=== PATIENT | male | born 1935 | race Caucasian/White ===

== ENCOUNTER → 2018-12-23 13:32 | Outpatient (CLI) | payer MEDICARE, SELFPAY ==
[2018-12-23 09:13] VITALS: BMI 25.3
--- NOTE | 2018-12-23 13:36 | RAD_ITS ---
STUDY: X-RAY - CERVICAL SPINE REASON FOR EXAM: Male, 83 years old. Neck pain TECHNIQUE: 3 view(s) of the cervical spine were obtained. COMPARISON: None FINDINGS: There is a normal lordotic curvature of the cervical spine with no demonstration of any acute fractures or dislocations. There is some narrowing at C3-C4 and C4-C5 disc spaces. There are also degenerative changes involving almost all of the facet joints. The prevertebral soft tissues are normal RAD/Cerv Spine 2 or 3 Views IMPRESSION: No fracture. Degenerative changes involving almost all of the facet joints. Individualized chondrosis at C3-C4 and C4-C5. Electronically Signed: Keaton Epstein MD at 2:47 EST Tel , Service support ,
--- NOTE | 2018-12-23 13:36 | RAD_ITS ---
STUDY: X-RAY - LUMBAR SPINE REASON FOR EXAM: Male, 83 years old. Back pain TECHNIQUE: 3 view(s) of the lumbar spine were obtained. COMPARISON: None FINDINGS: There is a 22 degrees thoracolumbar scoliosis with convexity to the right with the apex at around L1. There are also multilevel degenerative changes of the lumbosacral spine demonstrated by narrowing of almost all the disc spaces with spurs from the vertebral body endplates at these levels. There are no acute fractures. RAD/Lumbar Spine 2 or 3 Views IMPRESSION: A 22 degree thoracolumbar scoliosis with convexity to the right and multilevel degenerative changes of the lumbosacral spine. No fracture Electronically Signed: Keaton Epstein MD at 5:15 EST Tel , Service support ,
== END ==
PROVIDERS: Family Provider Nurse Practitioner Primary Care; PCP Nurse Practitioner Primary Care; Referring Provider Anesthesiology Pain Medicine; Visit Provider Anesthesiology Pain Medicine
DX: M54.2 Cervicalgia (principal); M54.9 Dorsalgia, unspecified
CPT/HCPCS: 72040; 72100; 80053; 82784; 84165; 85025; 86334; 96401; J9041

== ENCOUNTER → 2019-02-04 15:22 | Outpatient (CLI) | payer MEDICARE, SELFPAY ==
[2019-01-27 09:39] VITALS: BMI 24.8
[2019-02-03 09:27] VITALS: BMI 25.3
--- NOTE | 2019-02-04 15:29 | MRI_ITS ---
STUDY: MRI LUMBAR SPINE WITHOUT CONTRAST REASON FOR EXAM: Male, 83 years old. Low backache TECHNIQUE: Standardized fat and water weighted pulse sequences were obtained in the sagittal and axial planes. COMPARISON: None FINDINGS: T12-L1: Normal endplates. Normal disc height, hydration and morphology. Normal bilateral facet joints. Normal central canal and bilateral lateral recesses. Normal bilateral intervertebral neural foramina. Normal lumbar lordosis. There is dextroscoliosis of the upper lumbar spine and levoscoliosis of the lower lumbar spine. Normal conus medullaris that terminates at the T12-L1 level L1-2: There is moderate intervertebral disc space narrowing, mild annular disc bulge and bilateral facet arthrosis, mild ligamentum flavum hypertrophy. No central canal narrowing. Mild bilateral foraminal narrowing.. L2-3: There is grade 1 retrolisthesis of L2 on L3. There is marked intervertebral disc space narrowing and disc desiccation. There is posterior disc osteophyte complex, bilateral facet arthrosis. Mild central canal narrowing. Mild left foraminal narrowing. L3-4: There is grade 2 retrolisthesis of L3 on L4. There is right-sided subluxation of L3 on L4. There is mild to moderate annular disc bulge and bilateral facet arthrosis. Mild central canal narrowing. Mild right and moderate left foraminal narrowing. L4-5: There is moderate intervertebral disc space narrowing. There is annular disc bulge and small annular tear. Bilateral facet arthrosis. No central canal narrowing. Marked right and mild left foraminal narrowing. L5-S1: There is moderate to marked intervertebral disc space narrowing, annular disc bulge, bilateral facet arthrosis. No central canal narrowing. Moderate right and mild to moderate left foraminal narrowing. Normal visualized sacral ala. Normal visualized paraspinous soft tissue structures. There is a right renal cyst. MRI/Spine Lumbar (Routine) IMPRESSION: Multilevel degenerative disc disease is most prominent at L3-L4, L4-L5 and L5-S1 as described above. Lumbar scoliosis. Electronically Signed: Kailey Dillard, at 13:44 EDT Tel , Service support ,
--- NOTE | 2019-02-04 15:29 | MRI_ITS ---
STUDY: MRI CERVICAL SPINE WITHOUT CONTRAST REASON FOR EXAM: Male, 83 years old. Neck and left arm pain x2 years. TECHNIQUE: Standardized fat and water weighted pulse sequences were obtained in the sagittal and axial planes. COMPARISON: None FINDINGS: Normal foramen magnum and brainstem-cervical cord junction. Normal craniovertebral junction. Normal anterior atlantoaxial articulation. Normal odontoid process. Normal cervical lordosis. Normal vertebral bodies and posterior osseous elements. C2-3: Normal endplates. Normal disc height, signal and morphology. Normal central canal and intervertebral neural foramina. C3-4: Normal endplates. Mild disc space height narrowing. Normal central canal and bilateral intervertebral neural foramina. C4-5: Normal endplates. Normal disc height and morphology. Normal central canal and bilateral intervertebral foramina. C5-6: Normal endplates. Normal disc height and morphology. Mild degenerative anterolisthesis of C5 on C6. Normal central canal and bilateral intervertebral neural foramina. C6-7: Normal endplates. Minimal disc space height narrowing. Small posterior bulging disc. Normal central canal and bilateral intervertebral neural foramina. C7-T1: Normal endplates. Normal disc height and morphology. Normal central canal and bilateral intervertebral neural foramina. T1-T2: (Sagittal only). Normal endplates. Normal disc height and morphology. No ventral extradural defect. Normal central canal and bilateral intervertebral neural foramina. T2-T3, T3-T4 and T4-T5: (Sagittal only). Normal endplates. Normal disc height and morphology. No ventral extradural defect. Normal central canal and bilateral intervertebral neural foramina. Normal cervical cord. Normal visualized soft tissue structures. MRI/Spine Cervical (Routine) IMPRESSION: 1. No MRI evidence of cervical extruded disc fragment or spinal stenosis. 2. Minimal degenerative anterolisthesis of C5 on C6. 3. Small C6-7 posterior bulging disc. Electronically Signed: Mane Stokes MD at 14:40 EDT , Service support ,
== END ==
PROVIDERS: Family Provider Nurse Practitioner Primary Care; PCP Nurse Practitioner Primary Care; Referring Provider Anesthesiology Pain Medicine; Visit Provider Anesthesiology Pain Medicine
DX: M54.2 Cervicalgia (principal); M79.602 Pain in left arm
CPT/HCPCS: 72141; 72148

== ENCOUNTER 2019-04-21 10:41 | Outpatient (RCR) | payer MEDICARE, SELFPAY ==
[2019-04-14 09:15] VITALS: BMI 23.8
== END 2019-04-23 23:59 ==
LOC: NS 10:41
PROVIDERS: Family Provider Nurse Practitioner Primary Care; PCP Nurse Practitioner Primary Care; Visit Provider Internal Medicine Hematology & Oncology
DX: E11.9 Type 2 diabetes mellitus without complications (principal); C90.00 Multiple myeloma not having achieved remission; D51.9 Vitamin B12 deficiency anemia, unspecified
CPT/HCPCS: 36415; 85025; 97802; J9041

== ENCOUNTER 2019-05-10 14:30 | Outpatient (RCR) | payer MEDICARE, SELFPAY ==
[2019-04-21 10:22] VITALS: BMI 23.8
[2019-04-28 09:23] VITALS: BMI 23.8
== END 2019-05-23 23:59 ==
LOC: DC 14:30
PROVIDERS: Family Provider Nurse Practitioner Primary Care; PCP Nurse Practitioner Primary Care; Visit Provider Internal Medicine Hematology & Oncology
DX: E11.9 Type 2 diabetes mellitus without complications (principal); C90.00 Multiple myeloma not having achieved remission; D51.9 Vitamin B12 deficiency anemia, unspecified; Z71.3 Dietary counseling and surveillance
CPT/HCPCS: 97803; G0108

== ENCOUNTER → 2019-05-13 10:21 | Outpatient (CLI) | payer MEDICARE, SELFPAY ==
[2019-05-12 09:16] VITALS: BMI 24.4
--- NOTE | 2019-05-13 10:30 | RAD_ITS ---
HISTORY: PAIN IN LEFT LOWER BACK FOR A LONG TIME GETTING WORSE. HX OF BACK SURGERY TO CLEAN IT OUT PER PATIENT ABOUT 5 YRS AGO. NO KNOWN RECENT INJURY. TECHNIQUE: Lumbar spine 3 views Number of images including paperwork: 3 COMPARISON: 12/23/2018 FINDINGS: VERTEBRAE: No acute fracture. Mineralization appears decreased. VERTEBRAL ALIGNMENT: No traumatic subluxation. DISKS AND JOINTS: Severe multilevel discogenic and facet degenerative changes with lumbar scoliosis, grossly similar to previous. SOFT TISSUES: Unremarkable paraspinous soft tissues. RAD/Lumbar Spine 2 or 3 Views IMPRESSION: 1. No acute osseous abnormality. 2. Degenerative changes. at 2670 Reported and signed by: Beth Fernandez MD Electronically Signed: Beth Fernandez MD at 22:48 EDT Tel , Service support ,
== END ==
PROVIDERS: Family Provider Nurse Practitioner Primary Care; PCP Nurse Practitioner Primary Care; Referring Provider Anesthesiology Pain Medicine; Visit Provider Anesthesiology Pain Medicine
DX: M54.9 Dorsalgia, unspecified (principal)
CPT/HCPCS: 72100

== ENCOUNTER → 2019-05-24 16:19 | Outpatient (CLI) | payer MEDICARE, SELFPAY ==
[2019-05-12 09:16] VITALS: BMI 24.4
--- NOTE | 2019-05-24 16:29 | MRI_ITS ---
STUDY: MRI LUMBAR SPINE WITHOUT CONTRAST REASON FOR EXAM: Male, 83 years old. Back and left leg pain TECHNIQUE: Standardized fat and water weighted pulse sequences were obtained in the sagittal and axial planes. COMPARISON: February 04, 2019 FINDINGS: T12-L1: Normal endplates. Normal disc height, hydration and morphology. Normal bilateral facet joints. Normal central canal and bilateral lateral recesses. Normal bilateral intervertebral neural foramina. Normal lumbar lordosis. There is dextroscoliosis of the upper lumbar spine and compensatory levoscoliosis of the lower spine. Normal conus medullaris that terminates at T12-L1 L1-2: Endplate spurring.. Narrowed disc space with desiccation of the disc and mild annular bulge.. Mild facet arthropathy and thickening of ligamenta flava. Normal central canal and bilateral recesses. Mild bilateral neuroforaminal stenosis L2-3: Grade 1 retrolisthesis Narrowed disc space and endplate spurring. Minimal bulging disc osteophyte complex. Mild facet arthrosis. Mild narrowing of the central canal. Normal bilateral neuroforamina. Mild left neuroforaminal stenosis L3-4: Status post bilateral laminotomy. Grade 1/2 retrolisthesis. Normal disc space height. There is desiccation of the disc and mild bulging disc osteophyte complex.. Bilateral facet arthropathy. Mild central canal narrowing. Moderate bilateral neuroforaminal stenosis. L4-5: Status post bilateral laminotomy normal disc height. Desiccation of the disc and minor annular bulge. Bilateral facet arthropathy and thickening of ligamenta flava greater on the right. Normal central canal and bilateral recesses. Moderate left neuroforaminal stenosis and more severe narrowing on the right L5-S1: Status post bilateral laminotomy. Narrowed disc space and endplate spurring. Desiccation of the disc and mild annular bulge with broad-based left paracentral/posterolateral disc extrusion with inferior posterior migration of disc fragment. Bilateral facet arthropathy and mild thickening of ligamenta flava Normal central canal. Moderate left lateral recess and subarticular stenosis.. Moderate bilateral neural foraminal encroachment Normal visualized sacral ala. Large right renal cyst noted Normal visualized paraspinous soft tissue structures. Findings are similar to that seen on previous exam. MRI/Spine Lumbar (Routine) IMPRESSION: Scoliosis and degenerative changes. Multilevel spinal stenosis secondary to disc disease and bony hypertrophy most severe on the left at L5-S1 and on the right at L4-5 Electronically Signed: Isaías Fernandez MD at 19:24 EDT , Service support ,
== END ==
PROVIDERS: Family Provider Nurse Practitioner Primary Care; PCP Nurse Practitioner Primary Care; Referring Provider Anesthesiology Pain Medicine; Visit Provider Anesthesiology Pain Medicine
DX: M54.9 Dorsalgia, unspecified (principal); M79.605 Pain in left leg
CPT/HCPCS: 72148

== ENCOUNTER 2019-08-26 15:59 | Outpatient (RCR) | payer MEDICARE, SELFPAY ==
[2019-05-12 09:16] VITALS: BMI 24.4
[2019-08-18 09:56] VITALS: BMI 24.2
== END 2019-09-23 23:59 ==
LOC: DC 15:59
PROVIDERS: Family Provider Nurse Practitioner Primary Care; PCP Nurse Practitioner Primary Care; Visit Provider Internal Medicine Hematology & Oncology
DX: Z71.3 Dietary counseling and surveillance (principal); E11.9 Type 2 diabetes mellitus without complications; C90.00 Multiple myeloma not having achieved remission; D51.9 Vitamin B12 deficiency anemia, unspecified
CPT/HCPCS: G0109

== ENCOUNTER 2019-09-30 13:42 | Outpatient (RCR) | payer MEDICARE, SELFPAY ==
[2019-09-15 09:13] VITALS: BMI 23.8
[2019-09-29 09:30] VITALS: BMI 24.4
== END 2019-10-23 23:59 ==
LOC: DC 13:42
PROVIDERS: Family Provider Nurse Practitioner Primary Care; PCP Nurse Practitioner Primary Care; Visit Provider Internal Medicine Hematology & Oncology
DX: Z71.3 Dietary counseling and surveillance (principal); E11.9 Type 2 diabetes mellitus without complications; C90.00 Multiple myeloma not having achieved remission; D51.9 Vitamin B12 deficiency anemia, unspecified
CPT/HCPCS: G0109

== ENCOUNTER 2019-10-28 16:56 | Outpatient (RCR) | payer MEDICARE, SELFPAY ==
[2019-10-13 09:24] VITALS: BMI 23.5
[2019-10-27 09:02] VITALS: BMI 23.7
== END 2019-11-23 23:59 ==
LOC: DC 16:56
PROVIDERS: Family Provider Nurse Practitioner Primary Care; PCP Nurse Practitioner Primary Care; Visit Provider Internal Medicine Hematology & Oncology
DX: Z71.3 Dietary counseling and surveillance (principal); E11.9 Type 2 diabetes mellitus without complications; C90.00 Multiple myeloma not having achieved remission; D51.9 Vitamin B12 deficiency anemia, unspecified
CPT/HCPCS: G0109

== ENCOUNTER → 2020-01-10 08:45 | Outpatient (CLI) | payer MEDICARE, SELFPAY ==
[2020-01-05 09:16] VITALS: BMI 23.8
--- NOTE | 2020-01-10 08:48 | RAD_ITS ---
HISTORY: increasing anterior lower leg pain, hx myeloma ADDITIONAL HISTORY: None provided. TECHNIQUE: Left tibia fibula 2 views Number of images including paperwork: 2 COMPARISON: None FINDINGS: BONES: No acute fracture. Partially visualized plate and screw fixation of the left distal femur. JOINTS: No subluxation. Left knee prosthesis. SOFT TISSUES: No distinct foreign body. Vascular calcifications. Small areas of soft tissue calcification also noted. RAD/Tibia & Fibula 2 Views IMPRESSION: No acute osseous abnormality. Post operative changes. at 0027 Reported and signed by: Beth Fernandez MD Electronically Signed: Beth Fernandez MD at 0:27 EST Tel , Service support ,
== END ==
PROVIDERS: PCP Nurse Practitioner Primary Care; Referring Provider Internal Medicine Hematology & Oncology; Visit Provider Internal Medicine Hematology & Oncology
DX: C90.00 Multiple myeloma not having achieved remission (principal); R52 Pain, unspecified
CPT/HCPCS: 73590

== ENCOUNTER → 2021-10-26 07:07 | Outpatient (CLI) | payer MEDICARE, SELFPAY ==
--- NOTE | 2021-10-26 07:45 | MRI_ITS ---
History: NECK PAIN, H/A Technique: T1 and T2 MR imaging of the cervical spine performed without contrast enhancement in axial and sagittal planes. Comparison: February 04, 2019 Findings: Mild anterior listhesis of C5 on C6. Alignment of the cervical vertebral bodies is otherwise normal. No bone marrow edema. Cervical cord is normal. Visualized soft tissues of the neck are normal. C2-3: No disc protrusion. Normal caliber spinal canal and neural foramina. C3-4: Disc space narrowing. No disc protrusion. Normal caliber spinal canal and neural foramina. C4-5: Disc space narrowing. No disc protrusion. Normal caliber spinal canal and neural foramina. C5-6: Mild disc space narrowing. No disc protrusion. Normal caliber spinal canal and neural foramina. C6-7: No disc protrusion. Posterior ligamentous redundancy without significant impingement on the spinal canal. Intact neural foramina. C7-T1: No disc protrusion. Normal caliber spinal canal and neural foramina. MRI/Spine Cervical (Routine) IMPRESSION: Multilevel disc space narrowing. No disc herniation. No significant spinal or neuroforaminal stenosis. Normal cervical cord. at 0955 Reported and signed by: Erich Thakkar MD Electronically Signed: Erich Thakkar MD at 9:53 EST Tel , Service support ,
== END ==
PROVIDERS: PCP Nurse Practitioner Primary Care; Referring Provider Anesthesiology Pain Medicine; Visit Provider Anesthesiology Pain Medicine
DX: M54.12 Radiculopathy, cervical region (principal); M50.20 Other cervical disc displacement, unspecified cervical region; M50.30 Other cervical disc degeneration, unspecified cervical region
CPT/HCPCS: 72141

== ENCOUNTER 2021-11-26 09:58 | Outpatient (CLI) | payer MEDICARE, SELFPAY ==
--- NOTE | 2021-11-26 10:03 | RAD_ITS ---
STUDY: X-RAY - THORACIC SPINE REASON FOR EXAM: Male, 86 years old. DORSALGIA TECHNIQUE: 3 view(s) of the thoracic spine were obtained. COMPARISON: None. FINDINGS: There is straightening of the normal thoracic kyphosis. Minimal dextroscoliosis. There is demineralization of the thoracic spine with endplate spondylosis. There is multilevel disc space narrowing of the thoracic spine. Atherosclerotic calcification of the aortic arch. Calcified azygos lymph nodes. RAD/Thoracic Spine 3 Views IMPRESSION: Multilevel degenerative changes. Electronically Signed: Ran Rodriguez MD at 15:55 EST , Service support ,
--- NOTE | 2021-11-26 10:03 | RAD_ITS ---
STUDY: X-RAY - LUMBAR SPINE REASON FOR EXAM: Male, 86 years old. Low back pain TECHNIQUE: 5 view(s) of the lumbar spine were obtained. COMPARISON: None FINDINGS: There is straightening of the normal lumbar lordosis. There is a dextroscoliosis of the lumbar spine. There is a normal alignment of the vertebrae in the lateral view. There is multilevel endplate spondylosis of the lumbar vertebrae. There is multi-level degenerative disc disease with multi-level disc space narrowing. There is no demonstrated fracture. There is atherosclerotic calcification of the abdominal aorta without a demonstrated aneurysm. RAD/L/S Spine Min 4 Views IMPRESSION: Degenerative changes of the spine, as detailed above. Electronically Signed: Robin Mc MD at 16:59 EST , Service support ,
== END 2021-11-26 23:59 | disposition home or self-care (01) ==
LOC: RAD 10:00
PROVIDERS: PCP Nurse Practitioner Primary Care; Referring Provider Nurse Practitioner Family; Visit Provider Nurse Practitioner Family
DX: M54.9 Dorsalgia, unspecified (principal)
CPT/HCPCS: 72072; 72110

== ENCOUNTER → 2022-03-13 | Outpatient (CLI) | payer MEDICARE, SELFPAY ==
--- NOTE | 2022-03-13 11:00 | RAD_ITS ---
EXAM: XR LUMBOSACRAL SPINE, 2 OR 3 VIEWS : 1935 CLINICAL INDICATION: LOW BACK PAIN TECHNIQUE: Frontal and lateral views of the lumbar spine and sacrum. This report was created using [employer] report generation technology. COMPARISON: 11/26/2021 FINDINGS: VERTEBRAE: See below. DISC SPACES: There is multilevel degenerative change with disc space narrowing and osteophyte formation at all levels. There is a scoliotic deformity present. There is bony neural foraminal narrowing in the lower lumbar spine. GASTROINTESTINAL TRACT: Unremarkable as visualized. Included bowel gas pattern is non-obstructive. RAD/Lumbar Spine 2 or 3 Views IMPRESSION: Multilevel degenerative change with disc space narrowing, osteophyte formation and bony neural foraminal narrowing. Is a scoliotic deformity present. There is no change from the reference examination. There is no acute osseous abnormality. at 1710 Reported and signed by: Aleks Gonzalez MD Electronically Signed: Aleks Gonzalez MD at 17:09 EDT ,
== END | disposition home or self-care (01) ==
LOC: RAD 10:47
PROVIDERS: PCP Nurse Practitioner Primary Care; Visit Provider Anesthesiology Pain Medicine
CPT/HCPCS: 72100

== ENCOUNTER → 2022-08-14 | Outpatient (CLI) | payer MEDICARE, SELFPAY ==
--- NOTE | 2022-08-14 10:43 | RAD_ITS ---
INDICATION: L HIP PAIN, FALL EXAMINATION/TECHNIQUE: X-RAY - LEFT XR Hip Unilateral with Pelvis when performed; 2-3 Views 3 VIEWS COMPARISON: None. FINDINGS: SOFT TISSUES: No soft tissue swelling or gas. No radiopaque foreign body. BONES/JOINTS: No acute fracture or subluxation.. Degenerative bone changes visualized. No sclerotic or destructive changes observed. RAD/HIP, UNI W/ Pelvis 2-3 Views IMPRESSION: No acute fracture is seen. Degenerative changes. Electronically Signed: Kieran Gardiner MD at 15:50 EDT ,
== END | disposition home or self-care (01) ==
LOC: RAD 10:41
PROVIDERS: PCP Nurse Practitioner Primary Care; Referring Provider Nurse Practitioner Family; Visit Provider Nurse Practitioner Family
DX: M25.552 Pain in left hip (principal)
CPT/HCPCS: 73502

== ENCOUNTER → 2023-04-09 | Outpatient (CLI) | payer MEDICARE, SELFPAY ==
--- NOTE | 2023-04-09 13:00 | RAD_ITS ---
STUDY: X-RAY - LUMBAR SPINE REASON FOR EXAM: Male, 87 years old. Postlaminectomy syndrome. TECHNIQUE: 3 view(s) of the lumbar spine were obtained. COMPARISON: March 13, 2022. FINDINGS: There is straightening of the normal lumbar lordosis. Stable scoliosis. There is a normal alignment of the vertebrae. There is diffuse demineralization with multi-level endplate spondylosis. There is multi-level degenerative disc disease with multi-level disc space narrowing. There is no evidence of acute fracture or loss of vertebral axial height. There is atherosclerotic calcification of the abdominal aorta without a demonstrated aneurysm. RAD/Lumbar Spine 2 or 3 Views IMPRESSION: Scoliosis and degenerative changes of the lumbar spine without acute abnormality or major interval change. Electronically Signed: Marcio Montgomery DO at 20:53 EDT ,
== END | disposition home or self-care (01) ==
LOC: RAD 12:59
PROVIDERS: PCP Nurse Practitioner Primary Care; Referring Provider Anesthesiology Pain Medicine; Visit Provider Anesthesiology Pain Medicine
DX: M96.1 Postlaminectomy syndrome, not elsewhere classified (principal)
CPT/HCPCS: 72100

== ENCOUNTER → 2023-06-03 | Outpatient (CLI) | payer MEDICARE, SELFPAY ==
[2023-06-03 15:17] LABS: Absolute Lymphocyte Count 0.68 X10^3/uL (0.83-4.51); Absolute Neutrophil Count 2.4 X10^3/uL (2.0-7.7); Basophil# 0.03 X10^3/uL; Basophil% 0.8 % (0-1); Eosinophil# 0.21 X10^3/uL; Eosinophils% 5.3 % (0-5); Hematocrit 34.5 % (40-54); Hemoglobin 11.5 g/dL (13.0-16.5); Lymphocyte # 0.68 X10^3/ul (0.83-4.51); Lymphocyte % 17.2 % (19-41); Mean Corp Hgb Conc 33.3 g/dL (32-36); Mean Corpuscular Hgb 37.2 pg (27.0-32.0); Mean Corpuscular Volume 111.7 fL (80-94); Mean Platelet Vol. 10.3 fl (6.2-12.0); Monocyte# 0.62 X10^3/uL; Monocyte% 15.7 % (0-10); NRBC Flagged by Analyzer 0 % (0-5); Neutrophil # 2.38 X10^3/uL (2.7-7.7); Platelet Count 150 K/mm3 (150-450); RBC Distribution Width CV 15.1 % (11.6-14.6); RBC Distribution Width SD 61.7 fl (35.1-43.9); Red Blood Count 3.09 M/mm3 (4.6-6.2)
[2023-06-03 15:27] LABS: Vitamin B12 474 pg/mL (211-911)
[2023-06-03 15:52] LABS: ALB/GLOB Ratio 1.1 RATIO (0.9-2.4); AST(SGOT) 15 U/L (15-37); Alanine Aminotransfer ALT/SGPT 22 U/L (16-61); Albumin, Serum 3.7 g/dL (3.2-5.0); Alkaline Phosphatase 43 U/L (45-117); Anion Gap 5 (5-15); BUN 20 mg/dL (7-18); BUN/Creat Ratio 16.9 RATIO (10-20); Chloride 104 mmol/L (98-107); Creatinine, Serum 1.18 mg/dL (0.70-1.30); EST Glomerular Filtration Rate 62 mL/min (>60); Est Glom Filt Rate - Afr Amer 75 mL/min (>60); Globulin 3.3 g/dL (2.2-4.2); Glucose 119 mg/dL (74-106); Potassium 3.9 mmol/L (3.5-5.1); Sodium Level 137 mmol/L (136-145); Thyroid Stim Hormone (TSH) 1.82 uIU/mL (0.358-3.74)
[2023-06-06 12:09] LABS: Vitamin D 1,25-Dihydroxy 24.9 pg/mL (24.8-81.5)
[2023-06-07 05:07] LABS: Vitamin B1, Thiamine 103.3 nmol/L (66.5-200.0)
== END | disposition home or self-care (01) ==
LOC: MTLAB 11:27
PROVIDERS: PCP Nurse Practitioner Primary Care; Referring Provider Psychiatry & Neurology Neurology; Visit Provider Psychiatry & Neurology Neurology
DX: G62.9 Polyneuropathy, unspecified (principal); C90.01 Multiple myeloma in remission; M81.8 Other osteoporosis without current pathological fracture
CPT/HCPCS: 36415; 80053; 82607; 82652; 82746; 84425; 84443; 85025

== ENCOUNTER → 2023-08-18 | Outpatient (CLI) | payer MEDICARE, SELFPAY ==
--- NOTE | 2023-08-18 16:41 | NEURO ---
NCS and/or EMG Patient Report Ordering Doctor: Stanton Aguilar DATE OF SERVICE: 08/18/23 Findings: Nerve conduction studies were performed in the left upper extremity. The left median motor study recording the abductor pollicis brevis showed a normal amplitude, prolonged distal latency and slowed conduction velocity. The left ulnar motor study recording the abductor digiti minimi showed a normal amplitude, normal distal latency and normal conduction velocity. Focal slowing was present across the elbow. The left median sensory response recording digit two showed a reduced amplitude, prolonged latency and markedly slowed conduction velocity. The left ulnar sensory response recording digit five showed a normal amplitude, latency and conduction velocity. The left radial sensory response recording over the extensor snuff box showed a normal amplitude, latency and conduction velocity. Needle EMG of the left upper extremity muscles was performed. No denervation was seen in any muscle. Motor units in the abductor pollicis brevis were slightly large amplitude with reduced recruitment. All other motor unit morphology, activation and recruitment patterns were normal. Impression: This is an abnormal study. 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 The pathophysiology is both demyelinating and axonal loss. These findings are compatible with the clinical diagnosis of carpal tunnel syndrome. In addition, there is electrophysiologic evidence of a concurrent, mild, ulnar neuropathy across the elbow in the left upper extremity. Parveen Bui D.O. Multi Select Codes Neurology Neurology Interp Codes: 89826-32 Musc test done w/n test comp (interp) and 36379-32 Nrv cndj tst 5-6 studies (interp)
== END | disposition home or self-care (01) ==
LOC: PSN 15:42
PROVIDERS: PCP Nurse Practitioner Primary Care; Referring Provider Psychiatry & Neurology Neurology; Visit Provider Psychiatry & Neurology Neurology
DX: G56.02 Carpal tunnel syndrome, left upper limb (principal); M54.2 Cervicalgia
CPT/HCPCS: 95886; 95909

== ENCOUNTER → 2023-08-20 | Outpatient (CLI) | payer MEDICARE, SELFPAY ==
--- NOTE | 2023-08-20 10:20 | RAD_ITS ---
INDICATION: F/U MULTIPLE MYELOMA -- COMPARE TO 08/21/17 EXAMINATION: CT BONE - XR Bone Survey Complete TECHNIQUE: 2 views calvarium. Frontal and lateral views of the vertebral column. Frontal view pelvis. Multiple views of the lower extremities and upper extremities COMPARISON: FINDINGS: Possible calcific tendinopathy at the right shoulder. BONES/JOINTS: No acute fracture or subluxation. No blastic or lytic lesions of the calvarium. Degenerative changes of the vertebral column. Scoliosis at the thoracolumbar spine . Normal visualized ribs. No blastic or lytic lesion of the pelvis. Mild degenerative changes at the hips. Bilateral total knee replacements. Status post ORIF of the distal left femur. There are subtle patchy lucencies of the bilateral femurs with the previous study. Slightly increasing subtle lucencies of the bilateral humeri. Degenerative changes with mild hypertrophy at the acromioclavicular articulations bilaterally. RAD/Bone Survey Comp(Axial&Append) IMPRESSION: Mild subtle patchy lucencies of the bilateral humeri since the previous study. Increasing thoracolumbar scoliosis. Electronically Signed: Daniel Moreno DO at 0:06 EDT Reading Location ID and State: [facility] / [place] Tel [phone], Service support ,
== END | disposition home or self-care (01) ==
LOC: RAD 10:13
PROVIDERS: PCP Nurse Practitioner Primary Care; Referring Provider Internal Medicine Hematology & Oncology; Visit Provider Internal Medicine Hematology & Oncology
DX: C90.00 Multiple myeloma not having achieved remission (principal)
CPT/HCPCS: 77075

== ENCOUNTER → 2023-08-27 | Outpatient (CLI) | payer MEDICARE, SELFPAY ==
--- NOTE | 2023-08-27 15:45 | NEURO ---
NCS and/or EMG Patient Report Ordering Doctor: Stanton Aguilar DATE OF SERVICE: 08/27/23 Patient presents for electrodiagnostic testing of the lower limbs. Reports sharp shooting pains from the lower back radiating to the knee on the right side. He reports numbness and tingling in the feet. Electrodiagnostic findings: Right peroneal motor nerve demonstrates normal distal latency, amplitude with reduced conduction velocity. Left peroneal motor nerve demonstrates normal distal latency amplitude with reduced conduction velocity. Tibial motor response is normal bilaterally. Prolonged right peroneal F wave. Absent sensory responses. H?reflex is normal bilaterally. Needle EMG testing was performed in the lower limbs. All muscles tested showed no evidence of denervation with normal motor unit action potentials. Electrodiagnostic impression: This is an abnormal study in the lower limbs 1. 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 There is evidence of demyelination. 2. No electrodiagnostic evidence is noted for lumbosacral radiculopathy. Multi Select Codes Neurology Neurology Interp Codes: 06692-45 Musc test done w/n test comp (interp) (2) and 40694-15 Nrv cndj test 9-10 studies (interp)
== END | disposition home or self-care (01) ==
LOC: PSN 06:47
PROVIDERS: PCP Nurse Practitioner Primary Care; Referring Provider Psychiatry & Neurology Neurology; Visit Provider Psychiatry & Neurology Neurology
DX: G56.02 Carpal tunnel syndrome, left upper limb (principal); G62.9 Polyneuropathy, unspecified
CPT/HCPCS: 95886; 95911

== ENCOUNTER 2024-02-25 09:53 | Day surgery (SDC) | payer MEDICARE, SELFPAY ==
[2024-02-25] VITALS (7 sets, daily range): BP systolic 98–121; BP diastolic 59–74; PULSE 55–59; RESP 14–16; TEMP 36.1–36.6; O2SAT 94–100; BMI 25.4
[2024-02-25] MEDS: Lactated Ringers 1,000 ML 15 ML IV (10:29)
--- NOTE | 2024-02-25 11:17 | PCM.HP.STD ---
HPI - General HPI Narrative J BETSY, is a 88 M who presents for left endoscopic carpal tunnel release. no changes to h and p. rab post op instructions given. ok to proceed. left side marked. off his blood thinner. MR#: [id number] Acct: [id number] Name: Asuncion MEYER Rep #: [id number] : 1935 Provider: Dr. Ray Alberto MD Age/Sex: 88/M Location: [facility] [place].[facility] Status: Signed Intake Vital Signs 10/07/2314:27 10/28/2310:56 Height 5 ft 6 in 5 ft 6 in Weight: 159 lb BMI 25.7 BP 118/60 Blood Pressure Location Lt brachial Position Sitting Respiration 17 Pulse 60 Pulse Source Monitor Temp 98.0 F Temp Source Temporal Pulse Oximetry (%) 98 Oxygen Delivery Method room air Intake Visit Reasons: LEFT HAND Chief Complaint: Is patient in pain?: Yes Pain scale (1-10): 1 Allergies morphine Adverse Reaction (Severe, Verified 10/28/23 10:57) Nausea Medications aspirin 81 mg chewable tablet 81 mg PO DAILY@0800 08/18/17 [History Confirmed 10/28/23] atorvastatin 20 mg tablet (Lipitor) 20 mg PO DAILY 08/18/17 [History Confirmed 10/28/23] lisinopril 2.5 mg tablet (Zestril) 2.5 mg PO DAILY 08/18/17 [History Confirmed 10/28/23] pioglitazone 45 mg tablet 45 mg PO DAILY 08/18/17 [History Confirmed 10/28/23] metoclopramide HCl 10 mg tablet 10 mg PO TID PRN Nausea #30 TABLETS 09/15/17 [Rx Confirmed 10/28/23] calcium citrate 315 mg calcium-vitamin D3 6.25 mcg (250 unit) tablet 1,000 mg PO DAILY 12/24/17 [History Confirmed 10/28/23] Januvia 100 mg PO DAILY 05/20/18 [History Confirmed 10/28/23] Hydrocodone-Acetamin 10-325 mg 0.5 tab PO BID PRN Pain 07/21/19 [History Confirmed 10/28/23] glipizide 10 mg tablet, extended release 24 hr (Glucotrol XL) 10 mg PO DAILY 07/03/22 [History Confirmed 10/28/23] Omeprazole [Prilosec] 40 mg PO DAILY 04/16/23 [History Confirmed 10/28/23] acyclovir 400 mg tablet 400 mg PO BID #180 tabs 04/28/23 [Rx Confirmed 10/28/23] Left wrist splints #1 ea 06/03/23 [Rx Confirmed 10/28/23] dexamethasone 4 mg tablet See Rx Instructions .Route .COMPLEX #20 tabs 08/12/23 [Rx Confirmed 10/28/23] tamsulosin 0.4 mg capsule (Flomax) 0.4 mg PO QHS 10/01/23 [History Confirmed 10/28/23] cholecalciferol (vitamin D3) 1,250 mcg (50,000 unit) capsule 1,250 mcg PO QWEEK #4 caps 10/07/23 [Rx Confirmed 10/28/23] PFSH Medical History Back pain Bee sting reaction Cataracts, bilateral Constipation Cough Encounter for chemotherapy management Fall Femur fracture history of colonoscopy Left hip pain MGUS (monoclonal gammopathy of unknown significance) Sciatic leg pain Sinus congestion Surgical History History of back surgery History of bone marrow biopsy History of cataract surgery History of hernia repair History of knee replacement Hx of appendectomy Hx of tonsillectomy Family History Father CVA (cerebral vascular accident)Mother Heart disease Social History Smoking Status: Never smoker second hand exposure: No alcohol intake: never substance use type: does not use well-balanced diet: daily or most days caffeine: Yes Type: coffee Number of servings: 3 eating out: rarely or never during the past year weight has: remained stable what type of physical activity do you participate in: weight training and other details: light weights frequency: daily duration: 15-30 minutes/day blanca/yazidism: Zoroastrian seatbelt use: always do you feel safe at home: Yes HPI LEFT HAND Details: This documentation accurately reflects the service provided and the decisions made by me, Dr. Ray Alberto MD 10/28/23 1046. Part of today?s visit was documented by [ ], acting as scribe. J AUGSPURGER is a 88 year old M here today for left carpal tunnel syndrome...per dr. steele neurology Since around 2019, he has been experiencing intermittent left hand numbness, burning pain tingling and occasional left hand cramps; the pain primarily affects the thumb, index and middle fingers. In years past, he had had right carpal tunnel surgery and this was of benefit. here w Latrice his . the left hand going numb, was told has carpal tunnel syndrome. can't do buttons - not feeling clumsy - RHD. 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 thumb index and ring. pinky - feels normal. no shooting pains from the elbow. thumb feels a bit weak. has MM on immune suppressants for 6 yrs, diabetes, non smoker Ortho Exam General General: Yes no acute distress Neurologic: Yes alert and Yes oriented x3 Psychologic: Yes reasonable and appropriate Right Wrist/Hand Skin/Wound: No Swelling and No Ecchymosis Left Wrist/Hand Skin/Wound: Yes CDI, No Swelling, No Ecchymosis, Yes nail intact, Yes capillary refill normal and No erythema Left Wrist: Yes ROM-Extension 0-60, Yes ROM-Flexion 0-80, Yes ROM-Pronation 0-80, Yes ROM-Supination 0-90 and Yes Thenar Atrophy; No Tinel's, No Phalen's and No Hypothenar Atrophy Motor: EPL: 5, FDP-2: 5, 1st Dorsal Interosseous: 5 and APB: 5 Sensation: Radial: I, Ulnar: I and Median: D WRIST: neg tinels at elbow, normal 5th digit sens. Supplemental Info He is experiencing numbness, pain and occasional cramps in the left hand and has left hand weakness. His left hand numbness and weakness is causing some functional impairment. EMG/nerve conduction studies of the left upper extremities reveal a moderate left carpal tunnel syndrome and mild left cubital tunnel syndrome. His pain primarily affects the left thumb, index and middle fingers. He experiences intermittent neck pain. He has received cervical injections and these were of incomplete benefit for his left hand symptoms. He has had prior right carpal tunnel surgery and this was of benefit. He now wishes to pursue left carpal tunnel surgery. per dr steele neurology [facility] Pulmonary Services/Neurology [address] [place] [address] MR#: [id number] Acct: [id number] Name: EMORYSPURGEAsuncion Camarillo Rep #: [id number] : 1935 87 From: Parveen Bui DO Referring Dr: Stanton Aguilar MD Status: REG CLI Location: PSN Date: 08/18/23 Sex: M C NCS and/or EMG Patient Report Ordering Doctor: Stanton Aguilar DATE OF SERVICE: 08/18/23 Findings: Nerve conduction studies were performed in the left upper extremity. The left median motor study recording the abductor pollicis brevis showed a normal amplitude, prolonged distal latency and slowed conduction velocity. The left ulnar motor study recording the abductor digiti minimi showed a normal amplitude, normal distal latency and normal conduction velocity. Focal slowing was present across the elbow. The left median sensory response recording digit two showed a reduced amplitude, prolonged latency and markedly slowed conduction velocity. The left ulnar sensory response recording digit five showed a normal amplitude, latency and conduction velocity. The left radial sensory response recording over the extensor snuff box showed a normal amplitude, latency and conduction velocity. Needle EMG of the left upper extremity muscles was performed. No denervation was seen in any muscle. Motor units in the abductor pollicis brevis were slightly large amplitude with reduced recruitment. All other motor unit morphology, activation and recruitment patterns were normal. Impression: This is an abnormal study. 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 The pathophysiology is both demyelinating and axonal loss. These findings are compatible with the clinical diagnosis of carpal tunnel syndrome. In addition, there is electrophysiologic evidence of a concurrent, mild, ulnar neuropathy across the elbow in the left upper extremity. Coding Level of Care Code Off vis,new,level 4 Diagnoses Cubital tunnel syndrome on left G56.22 Carpal tunnel syndrome of left wrist G56.02 Assessment and Plan Assessment and Plan (1) Cubital tunnel syndrome on left: Status: Acute Plan: 88-year-old man with carpal tunnel syndrome on the left side confirmed by diagnostic testing and nerve conduction studies. No signs clinically of cubital tunnel syndrome. He had good results in the past with an open release on the right side. I counseled the patient on diagnosis prognosis different treatment options associated with this he has failed conservative management including nighttime splinting for at least 6 weeks feels like this is making it worse. Other options will be doing nothing could certainly get worse or more permanent with time that being said surgeries not a guarantee. Can try cortisone injections as well as open or endoscopic carpal tunnel release. Patient would like to proceed with the latter he would certainly be at an increased risk due to multiple myeloma immune suppressed as well as with diabetes. He is also on a blood thinner right now he had a recent femur fracture that was already fixed and he is supposed to be on Xarelto until the end of the month so we will not proceed with surgery until he is off the blood thinners he will let us know when that is confirmed. He understands wishes to proceed with surgery and we booked the patient for left endoscopic carpal tunnel release. Pros and cons risks and benefits were discussed with the patient including but not limited to infection, pain, stiffness, bleeding, damage to surrounding structures, neurovascular injury, recurrence or retear, failure or wear of hardware or fixation, instability, fracture, deep vein thrombosis and pulmonary embolism, anesthetic risks, , patient dissatisfaction, need for further surgery and other risks. Patient understood and wished to proceed with surgery, and signed the informed consent documentation. (2) Carpal tunnel syndrome of left wrist: [facility] Medical History Arthritis Back pain Bee sting reaction Cancer Cataracts, bilateral Constipation Cough Dietary restriction DVT (deep venous thrombosis) Encounter for chemotherapy management Fall Femur fracture High cholesterol history of colonoscopy History of femur fracture History of steroid therapy History of stress test Left hip pain Low iron MGUS (monoclonal gammopathy of unknown significance) Non-smoker Sciatic leg pain Sinus congestion Wears glasses Home Medications atorvastatin 20 mg tablet (Lipitor) 20 mg PO DAILY 08/18/17 [History Last Taken Unknown] lisinopril 2.5 mg tablet (Zestril) 2.5 mg PO DAILY 08/18/17 [History Last Taken 02/25/24 06:30] pioglitazone 45 mg tablet 45 mg PO DAILY 08/18/17 [History Last Taken Unknown] calcium citrate 315 mg calcium-vitamin D3 6.25 mcg (250 unit) tablet 1,000 mg PO DAILY 12/24/17 [History Last Taken Unknown] Januvia 100 mg PO DAILY 05/20/18 [History Last Taken Unknown] Hydrocodone-Acetamin 10-325 mg 0.5 tab PO BID PRN Pain 07/21/19 [History Last Taken Unknown] glipizide 10 mg tablet, extended release 24 hr (Glucotrol XL) 10 mg PO DAILY 07/03/22 [History Last Taken Unknown] Omeprazole [Prilosec] 40 mg PO DAILY 04/16/23 [History Last Taken Unknown] Left wrist splints #1 ea 06/03/23 [Rx Last Taken Unknown] dexamethasone 4 mg tablet See Rx Instructions .Route .COMPLEX #20 tabs 08/12/23 [Rx Last Taken Unknown] ferrous sulfate 137 mg (45 mg iron) tablet,extended release (Slow Fe) 45 mg PO DAILY 10/29/23 [History Last Taken Unknown] acyclovir 400 mg tablet 400 mg PO BID #180 tabs 11/03/23 [Rx Last Taken Unknown] ascorbic acid (vitamin C) 500 mg tablet 500 mg PO DAILY 11/13/23 [History Last Taken Unknown] aspirin 81 mg tablet,delayed release 81 mg PO .QOD 01/21/24 [History Last Taken 02/18/24] Allergy/AdvReac Type Severity Reaction Status Date / Time morphine AdvReac Severe Nausea Verified 02/25/24 10:14 Family History Father CVA (cerebral vascular accident) Mother Heart disease Surgical History History of back surgery History of bone marrow biopsy History of cataract surgery History of hernia repair History of knee replacement Hx of appendectomy Hx of tonsillectomy Social History Smoking Status: Never smoker second hand exposure: No alcohol intake: never substance use type: does not use well-balanced diet: daily or most days caffeine: Yes Type: coffee Number of servings: 3 eating out: rarely or never during the past year weight has: remained stable what type of physical activity do you participate in: weight training and other details: light weights frequency: daily duration: 15-30 minutes/day blanca/yazidism: Zoroastrian seatbelt use: always do you feel safe at home: Yes Vital Signs Vital Signs Vital Signs: 02/25/24 10:16 02/25/24 10:16 Temperature 97 F L Temperature Source Temporal Pulse Rate 55 L Respiratory Rate 16 Respiratory Pattern Normal Blood Pressure 121/74 H Blood Pressure Mean 89 Blood Pressure Source Monitor Blood Pressure Position Semi-Fowlers Blood Pressure Location Right Arm Pulse Ox 99 Oxygen Delivery Method Room Air Weight Weight: 158 lb Body Mass Index (BMI) 25.4
[2024-02-25 11:25] LABS: Bedside Glucose 117 mg/dL (74-106)
[2024-02-25] MEDS: Cefazolin 2 GM in 0.9% Normal Saline (100mL Bag) 100 ML IV (11:33)
[2024-02-25] MEDS: Bupivacaine 0.25% 30 ML Vial (12:01)
--- NOTE | 2024-02-25 12:04 | OP.PCM_ITS ---
Problems Associated Problem List Diagnoses (1) Carpal tunnel syndrome of left wrist: Report of Operation Date of Procedure: 02/25/24 Pre-Operative Diagnosis: L carpal tunnel syndrome Post-Operative Diagnosis: same Surgery/Procedure Performed:: L endoscopic carpal tunnel release Surgeon: Ray Alberto Type of Anesthesia: Local MAC and Local Anesthesiologist: Arnaldo Villanueva Estimated Blood Loss (mL): 5 Description of Procedure: Patient was brought to the operating room theater.? The patient was administered 2g iv ancef prior to the start of the procedure.? Placed supine on the operating room table.? Anesthesia induced.? SCDs on the legs.? Tourniquet applied to left upper operative extremity, appropriately padded. Arm table used. Operative extremity prepped and draped in the usual sterile fashion with chlorhexidine- based prep solution allowing over 3 minutes drying time prior to draping.? Preoperative timeout performed to confirm the site patient and the surgery. I used the [employer] center line endoscopic carpal tunnel kit / technique. 2 cc 0.25% bupivicaine at incision site. ? Tourniquet up at 250mmg. I made a transverse 2 cm incision in line with the? transverse wrist crease.? This was in line with the fourth digit.? I carried the dissection down through skin and subcutaneous tissue achieved meticulous hemostasis. Just ulnar to palmaris tendon.? I incised the antebrachial fascia.? I passed sequential dilators into the carpal tunnel along the radial border of the Guyon's canal aiming for the fourth digit with the hand in extension. I used a synovial elevator to identify the transverse fibers of the transverse carpal tunnel ligament.? Passed the scope into the carpal tunnel. Once I had identified the full proximal and distal extent of the ligament I fully released the ligament under direct visualization by deploying the blade and slowly withdrawing the scope made sequential passes until I no longer felt tension as well as the entire extent of the ligament was released under direct visualization.? Sounded the tunnel with sloan tenotomy scissors, complete release, no bands. Pictures taken and saved before and after release. Tourniquet let down. Meticulous hemostasis. Incision closed with 3-0 nylon, simple interrupted. Skin was cleaned and dried. adaptic and 4x4 gauze and osito wrap. Patient woken up,? transferred off the operating room table and taken to postanesthetic care unit in stable condition. All sponge needle instrument counts were correct no complications.? Plan for the patient to be discharged home according to day surgery criteria when they are comfortable. Follow-up in the office in 2 days time. Gentle ROM hand and elbow no heavy lifting. cpt 41589 Complications none Admit VTE Documentation VTE Present on Admission: No VTE Mechan Device Prophylaxis: SCD's VTE Pharm Prophylaxis ordered?: No Reason prophylaxis not ordered:: Treatment Not Indicated Procedures Musculoskeletal [id number]-29xxx: Other Procedure See Report
--- NOTE | 2024-02-25 12:08 | DCINST_ITS ---
Discharge Instructions Diet Discharge Diet: No restrictions Activity Ice area for (Minutes): 10 Lifting Restrictions: no heavy lifting or gripping 6 weeks Keep extremity elevated above heart level: Operative Extremity Dressing / Incision Call your doctor if your incision/area has: Continuous Slow Oozing, Sudden Increased Bleeding, Increased Pain/ Swelling, Increased Redness, Foul Smelling Discharge and Swelling at the incision site Change Dressing in: leave in place till F/U Follow Up Care Please Follow Up With: Ray Alberto MD When: 2 days Test Results: Test results from this visit will be discussed in further detail at your follow-up appointment, if applicable. Discharge Plan Admission Attending Provider: Ray Alberto Primary Care Provider: Glo Robles NP Discharge Orders/Prescriptions Prescriptions: No Action (DME) Left wrist splints See Rx Instructions .ROUTE .MEDSUPPLY Qty: 1 0RF Rx Instructions: Left wrist splint to be worn at night Slow Fe 137 mg (45 mg iron) tablet extended release 45 mg PO DAILY ascorbic acid (vitamin C) 500 mg tablet 500 mg PO DAILY aspirin 81 mg tablet,delayed release (DR/EC) 81 mg PO .QOD atorvastatin [Lipitor] 20 MG tablet 20 mg PO DAILY pioglitazone 45 MG tablet 45 mg PO DAILY lisinopril [Zestril] 2.5 MG tablet 2.5 mg PO DAILY calcium citrate-vitamin D3 1 EACH tablet 1,000 mg PO DAILY Januvia 100 mg PO DAILY Hydrocodone-Acetamin 10-325 mg 0.5 tab PO BID PRN (Reason: Pain) glipizide [Glucotrol XL] 10 mg tablet extended release 24hr 10 mg PO DAILY Patient Comments: pt takes Glucotrol 5mg on Friday and when taking Dexamethasone fo r treatment Omeprazole [Prilosec] 40 MG capsule 40 mg PO DAILY Rx Instructions: Usually takes Friday-, sometimes on Friday dexamethasone 4 mg tablet See Rx Instructions .ROUTE .COMPLEX Qty: 20 12RF Dose Instruction: TAKE 5 TABLETS (20 MG) WEEKLY ON WEDNESDAYS Rx Instructions: TAKE 5 TABLETS (20 MG) WEEKLY ON WEDNESDAYS acyclovir 400 mg tablet 400 mg PO BID Qty: 180 1RF Referrals / Follow Up: Ray Alberto MD [Med Staff - Active Staff] - Glo Robles NP, BORING MACHINE OPERATOR HORIZONTAL-C [Primary Care Provider] - Disposition Disposition (needs filled in before D/C Order can be placed): Home, Self Care
== END 2024-02-25 13:11 | disposition home or self-care (01) ==
LOC: SDC 09:57 → AC 09:58
PROVIDERS: PCP Nurse Practitioner Primary Care; Referring Provider Orthopaedic Surgery Sports Medicine; Visit Provider Orthopaedic Surgery Sports Medicine
PROC: (CPT 29848; principal; 2024-02-25 11:20)
DX: G56.02 Carpal tunnel syndrome, left upper limb (principal); E11.40 Type 2 diabetes mellitus with diabetic neuropathy, unspecified; G56.22 Lesion of ulnar nerve, left upper limb; E78.00 Pure hypercholesterolemia, unspecified; Z79.84 Long term (current) use of oral hypoglycemic drugs; G62.9 Polyneuropathy, unspecified; Z86.718 Personal history of other venous thrombosis and embolism; Z87.81 Personal history of (healed) traumatic fracture; Z87.19 Personal history of other diseases of the digestive system; Z90.49 Acquired absence of other specified parts of digestive tract; Z96.653 Presence of artificial knee joint, bilateral
CPT/HCPCS: 29848; 01810; 82962; J7120; J2405

== ENCOUNTER → 2024-06-17 | Outpatient (CLI) | payer MEDICARE, SELFPAY ==
--- NOTE | 2024-06-17 09:53 | RAD_ITS ---
INDICATION: Postlaminectomy syndrome, not elsewhere classified EXAMINATION/TECHNIQUE: X-RAY - XR Spine Lumbar 2 or 3 Views COMPARISON: 04/09/2023 lumbar spine radiographs. FINDINGS: 2 views of the lumbar spine. BONES: Stable marked focal lumbar dextroscoliosis. Associated severe multilevel degenerative disc disease. Otherwise, anatomic alignment without evidence of fracture or subluxation. No concerning bony lesion or abnormal sclerosis to suggest lesion. SOFT TISSUES: Dense atherosclerotic vascular calcifications. RAD/Lumbar Spine 2 or 3 Views IMPRESSION: Stable severe degenerative change of the lumbar spine. If there is persistent clinical concern for spine fracture and this is a trauma patient, recommend dedicated lumbar spine CT. Electronically Signed: Solitario Flaherty MD at 23:00 EDT ,
== END | disposition home or self-care (01) ==
LOC: RAD 09:48
PROVIDERS: PCP Nurse Practitioner Primary Care; Referring Provider Anesthesiology Pain Medicine; Visit Provider Anesthesiology Pain Medicine
DX: M96.1 Postlaminectomy syndrome, not elsewhere classified (principal)
CPT/HCPCS: 72100

== ENCOUNTER → 2024-06-25 | Outpatient (CLI) | payer MEDICARE, SELFPAY ==
--- NOTE | 2024-06-25 15:56 | CT_ITS ---
INDICATION: bilateral lower quad abd pain.Low abd pain x2 weeks, appendectomy. Multiple Myeloma. EXAMINATION: CT ABDOMEN AND PELVIS with CONTRAST - CT Abdomen And Pelvis W/ Contrast Injection TECHNIQUE: Multiple axial images were obtained of the abdomen and pelvis following administration of IV contrast. Planar reconstructions obtained. A radiation dose optimization technique was used for this scan. RADIATION DOSAGE (If Supplied By Facility): CTDIvol = ( 11.07 ) mGy, DLP = ( 618.93 ) mGycm IV Contrast dosage and agent: 75 mL Isovue-300 Oral contrast: Oral contrast is present. COMPARISON: No pertinent previous studies for comparison.. FINDINGS: LOWER CHEST: 1. Minimal atelectasis at the lung bases greater on RIGHT than LEFT. No infiltrate or consolidation. 2. No cardiomegaly or pericardial effusion. . 3. Scattered significant coronary vascular calcifications. HEPATOBILIARY: Liver: The liver is homogeneous and shows no evidence of focal lesion. Gallbladder: The gallbladder is unremarkable. Pancreas: Diffuse pancreatic atrophy. There is a 1.7 x 1.7 cm cyst in the region of the remnant of pancreatic head (series 2: Image 42. No ductal dilatation. Spleen: The spleen is homogeneous and normal in size. . BOWEL: Stomach: The stomach is normal in size configuration, no evidence of focal masses, abnormal calcifications. No hiatal hernia noted. Bowel: Small and large have normal configuration, no masses or bowel obstruction noted. Large amount retained stool throughout colon. Appendix: The appendix is not positively identified.: GENITOURINARY: Adrenals: Both adrenal glands are normal in size. Kidneys: Kidneys appear symmetric in size. No calcifications are seen in the collecting system. There is no hydronephrosis or surrounding fluid. There is a low-density RIGHT renal cyst measuring 3.6 x 3.8 cm. Bladder: Normal Pelvic organs: The visualized pelvic organs are normal in size and configuration. No masses or adenopathy noted. RETROPERITONEUM: Vascular calcifications in the aorta without aneurysmal dilatation. LYMPH NODES: No evidence of retroperitoneal or para-aortic masses fluid collections or adenopathy. PERITONEAL CAVITY: No ascites noted ANTERIOR ABDOMINAL WALL: Normal, no hernia identified. BONES AND SOFT TISSUES: Postoperative changes involving the RIGHT hip. Diffuse lumbar spondylosis and scoliosis. No acute bony changes. OTHER: None CT/Abdomen/Pelvis WITH Contrast IMPRESSION: 1. Moderate amount retained stool throughout the colon. No evidence of masses bowel obstruction abscess free fluid or free air. 2. Appendix is not positively identified. 3. No evidence of renal calcification or obstructive uropathy. 4. Bosniak type I RIGHT renal cyst. No recommended follow-up. 5. Diffuse pancreatic atrophy however there is a small cystic lesion in the region of the residual of the pancreatic head, measuring 1.7 x 1.7 cm no solid masses or abnormal enhancement. Consider follow-up in approximately 6 months to establish stability. 6. Lumbar spondylosis and scoliosis. No acute bony changes. Postop ORIF of RIGHT hip. Reference guidance and recommendations: Pancreatic Cyst ACR Follow-Up Recommendation: Johnny France, Humberto Daniels., Lisette Serrato., Ang, I. R., Ian, D. V., Jarred Wong., Caprice, W. R., August, L. Amanda., T Pandharipahaydeee, P. V. (2017). Management of Incidental Pancreatic Cysts: A White Paper of the ACR Incidental Findings Committee. Journal of the [place] [employer] : JACR, 14(), 911?923. https://doi.org/10.1016/j.jacr.2017.03.010 Renal cyst: Bosniak class I and II cysts are considered benign, and require no additional imaging follow-up based on consensus guidelines (JACR 2010; 7:753-773). Electronically Signed: Talon Mckinney MD at 22:25 EDT ,
== END | disposition home or self-care (01) ==
LOC: CT 15:53
PROVIDERS: PCP Nurse Practitioner Primary Care; Referring Provider Nurse Practitioner Family; Visit Provider Nurse Practitioner Family
DX: R10.31 Right lower quadrant pain (principal); R10.32 Left lower quadrant pain
CPT/HCPCS: 74177; Q9967

== ENCOUNTER 2024-07-09 11:31 | Emergency (ER) | payer MEDICARE, SELFPAY ==
[2024-07-09 11:31] VITALS: BP 134/76; PULSE 63; RESP 14; TEMP 36.6; O2SAT 98; BMI 24.2
--- NOTE | 2024-07-09 12:12 | EDS_ITS ---
HPI History of Present Illness Chief Complaint: Constipation Detail of Chief Complaint: Have not had a normal bowel movement for 5 weeks Informant: patient Onset/Context/Timing Onset: Weeks Context: Sudden Onset Timing: Continuous Quality: Small stool at best Location: GI Current Severity: Moderate Maximum Severity: Moderate Worsened by: Nothing Relieved by: Nothing Associated Symptoms Associated Symptoms: Patient had a CAT scan earlier this month which revealed fecal stasis. Narrative Narrative: Patient is an 88-year-old male. He has history of mouth myeloma. He is undergoing treatment for his mouth myeloma. He also has history of B12 deficiency, thrombocytopenia, back pain with sciatica, hypertension, and diabetes. Patient not had a normal bowel movement in 5 weeks. Patient states he is going small amounts. Patient had a CAT scan on June 26 that revealed fecal stasis. There is no evidence of obstruction. He has had no prior a bdominal surgery. He denies any other complaints. Patient [place] fever, chills night sweats. Patient has not had any recent weight loss. He denies cardiac or respiratory symptoms. He denies urologic symptoms. Prior similar symptoms: No Recent Illness/Hospitalization: No PFSH PFS Medical History Pancreatic cyst Abdominal pain Wears glasses Cancer History of steroid therapy Arthritis Low iron DVT (deep venous thrombosis) High cholesterol Dietary restriction Non-smoker History of stress test History of femur fracture Sciatic leg pain Cough Fall Left hip pain Constipation Sinus congestion Encounter for chemotherapy management Back pain Bee sting reaction Cataracts, bilateral history of colonoscopy Femur fracture MGUS (monoclonal gammopathy of unknown significance) Home Medications ?Medication ?Instructions ?Recorded ?Last Taken ?Type atorvastatin 20 mg tablet (Lipitor) 20 mg PO DAILY 08/18/17 Unknown History lisinopril 2.5 mg tablet (Zestril) 2.5 mg PO DAILY 08/18/17 02/25/24 06:30 History pioglitazone 45 mg tablet 45 mg PO DAILY 08/18/17 Unknown History calcium citrate 315 mg 1,000 mg PO DAILY 12/24/17 Unknown History calcium-vitamin D3 6.25 mcg (250 unit) tablet Januvia 100 mg PO DAILY 05/20/18 Unknown History Hydrocodone-Acetamin 10-325 mg 0.5 tab PO BID PRN Pain 07/21/19 Unknown History glipizide 10 mg tablet, extended 10 mg PO DAILY 07/03/22 Unknown History release 24 hr (Glucotrol XL) Omeprazole [Prilosec] 40 mg PO DAILY 04/16/23 Unknown History Left wrist splints #1 ea 06/03/23 Unknown Rx dexamethasone 4 mg tablet See Rx Instructions .Route 08/12/23 Unknown Rx .COMPLEX #20 tabs ferrous sulfate 137 mg (45 mg 45 mg PO DAILY 10/29/23 Unknown History iron) tablet,extended release (Slow Fe) ascorbic acid (vitamin C) 500 mg 500 mg PO DAILY 11/13/23 Unknown History tablet aspirin 81 mg tablet,delayed 81 mg PO .QOD 01/21/24 02/18/24 History release cholecalciferol (vitamin D3) 1,250 1,250 mcg PO QWEEK #4 caps 03/08/24 Unknown Rx mcg (50,000 unit) capsule cholecalciferol (vitamin D3) 1,250 1,250 mcg PO QWEEK 03/17/24 Unknown History mcg (50,000 unit) capsule acyclovir 400 mg tablet 400 mg PO BID #180 tabs 04/29/24 Unknown Rx polyethylene glycol 3350 17 4 g PO DAILY 07/07/24 Unknown History gram/dose oral powder (Miralax) Allergy/AdvReac Type Severity Reaction Status Date / Time morphine AdvReac Severe Nausea Verified 07/09/24 11:42 Family History Father CVA (cerebral vascular accident) Mother Heart disease Surgical History History of cataract surgery History of bone marrow biopsy Hx of tonsillectomy History of knee replacement History of hernia repair History of back surgery Hx of appendectomy Social History Smoking Status: Never smoker second hand exposure: No alcohol intake: never substance use type: does not use well-balanced diet: daily or most days caffeine: Yes Type: coffee Number of servings: 3 eating out: rarely or never during the past year weight has: remained stable what type of physical activity do you participate in: weight training and other details: light weights frequency: daily duration: 15-30 minutes/day blanca/mu-ism: Yazdanism seatbelt use: always do you feel safe at home: Yes ROS ROS ED Constitutional Constitutional ED: Denies chills, fever(s), subjective, sweats or weight loss Eyes Eyes: Denies blurry vision or change in vision ENT ENT ED: Denies ear pain or rhinorrhea Cardiovascular Cardiovascular: Denies chest pain, palpitations or racing heartbeat Respiratory/Chest Respiratory/Chest: Denies cough, dyspnea or dyspnea on exertion Gastrointestinal Gastrointestinal: Reports constipation and other Details: Patient complains of fullness. Patient is flagellated. Patient states he did an enema yesterday and today with no results ; Denies abdominal pain, diarrhea, melena or vomiting Genitourinary Genitourinary ED: Denies dysuria, hematuria or urinary frequency Musculoskeletal Musculoskeletal: Denies arthralgias, back pain, myalgias or neck pain Integumentary Denies rash Neurologic Neurologic: Denies headache(s), paresthesias or weakness Psychiatric Psychiatric: Denies anxiety or depression Hematologic/Lymphatic Hematologic/Lymphatic: Reports systems reviewed and no addt'l complaints, except as documented EXAM Physical Exam Const Vital Signs: 07/09/24 11:31 Temperature 98 F Temperature Source Temporal Pulse Rate 63 Respiratory Rate 14 Blood Pressure 134/76 H Blood Pressure Mean 95 Pulse Ox 98 Oxygen Delivery Method Room Air Positive well nourished and well developed General Appearance ED: well developed and NAD; Negative for pallor HEENT Reports moist mucous membranes HEENT Narrative: Head is atraumatic normocephalic. Ears normal. Eyes PERRL and EOMs intact bilaterally General Eye ED: Negative for pale conjunctiva or scleral icterus Resp normal respiratory effort and clear to auscultation bilaterally Cardio regular rate, regular rhythm, S1 normal heart sound, S2 normal heart sound and no murmurs GI non-tender and no masses; Negative for non-distended or hepatosplenomegaly GI Narrative: Abdomen slightly tympanitic. Patient has external hemorrhoids on rectal exam. There is no stool in the vault. Material that was present was brown. Auscultation: hypoactive bowel sounds Back/Spine no CVA tenderness Extremity normal to inspection Neuro oriented x3 and CN's II-XII intact bilaterally Sensorium / Orientation: alert Psych mental status grossly normal Skin no rashes or lesions noted and no wounds General Skin Exam: Negative for jaundice or pallor MDM MDM MDM Narrative Medical decision making narrative: Patient with obstipation. Patient who was instructed what to do. This could be done as an outpatient. Does not need treatment in the ER. Patient is fine with that. History & Record Review Additional record(s) reviewed:: Prior outpatient record (Confirmed patient outpatient CAT scan that revealed fecal stasis.) Discharge Plan Triage Chief Complaint: Constipation ED Provider: Ashish Ugalde Dx/Rx/DC Orders Clinical Impression: Obstipation, Multiple myeloma, HTN (hypertension), DM (diabetes mellitus) Instructions: ED Constipation (Adult) Prescriptions: No Action (DME) Left wrist splints See Rx Instructions .ROUTE .MEDSUPPLY Qty: 1 0RF Rx Instructions: Left wrist splint to be worn at night Slow Fe 137 mg (45 mg iron) tablet extended release 45 mg PO DAILY cholecalciferol (vitamin D3) 1,250 mcg (50,000 unit) capsule 1,250 mcg PO QWEEK Qty: 4 12RF ascorbic acid (vitamin C) 500 mg tablet 500 mg PO DAILY aspirin 81 mg tablet,delayed release (DR/EC) 81 mg PO .QOD cholecalciferol (vitamin D3) 1,250 mcg (50,000 unit) capsule 1,250 mcg PO QWEEK polyethylene glycol 3350 [Miralax] 17 gram/dose powder 4 g PO DAILY atorvastatin [Lipitor] 20 MG tablet 20 mg PO DAILY pioglitazone 45 MG tablet 45 mg PO DAILY lisinopril [Zestril] 2.5 MG tablet 2.5 mg PO DAILY calcium citrate-vitamin D3 1 EACH tablet 1,000 mg PO DAILY Januvia 100 mg PO DAILY Hydrocodone-Acetamin 10-325 mg 0.5 tab PO BID PRN (Reason: Pain) glipizide [Glucotrol XL] 10 mg tablet extended release 24hr 10 mg PO DAILY Patient Comments: pt takes Glucotrol 5mg on Friday and when taking Dexamethasone for treatment Omeprazole [Prilosec] 40 MG capsule 40 mg PO DAILY Rx Instructions: Usually takes Friday-, sometimes on Friday dexamethasone 4 mg tablet See Rx Instructions .ROUTE .COMPLEX Qty: 20 12RF Dose Instruction: TAKE 5 TABLETS (20 MG) WEEKLY ON WEDNESDAYS Rx Instructions: TAKE 5 TABLETS (20 MG) WEEKLY ON WEDNESDAYS acyclovir 400 mg tablet 400 mg PO BID Qty: 180 1RF Primary Care Provider: Glo Robles NP Referrals: Glo Robles NP, [facility] INTERVIEWER-[facility] [Primary Care Provider] - 1-2 Days if not improving Activity Restrictions/Additional Instructions: 1. In the morning upon awakening drink 10 ounces of mag citrate. 2. 4 hours later 1 cap of MiraLAX in your favorite beverage. 3. Repeat MiraLAX and favorite beverage every 1-2 hours until you start to have results. Print Language: Khmer Disposition Disposition: Home, Self Care
[2024-07-09 13:00] VITALS: PULSE 78; RESP 16; TEMP 36.6; O2SAT 99
== END 2024-07-09 13:26 | disposition home or self-care (01) ==
PROVIDERS: Emergency Provider Emergency Medicine; PCP Nurse Practitioner Primary Care; Visit Provider Emergency Medicine
DX: K59.00 Constipation, unspecified (principal); C90.00 Multiple myeloma not having achieved remission; E11.9 Type 2 diabetes mellitus without complications; I10 Essential (primary) hypertension; E78.00 Pure hypercholesterolemia, unspecified; Z79.899 Other long term (current) drug therapy; Z79.84 Long term (current) use of oral hypoglycemic drugs; Z79.82 Long term (current) use of aspirin; Z96.659 Presence of unspecified artificial knee joint; Z90.49 Acquired absence of other specified parts of digestive tract
CPT/HCPCS: 99282

== ENCOUNTER → 2024-07-20 | Outpatient (CLI) | payer MEDICARE, SELFPAY ==
--- NOTE | 2024-07-20 10:10 | MRI_ITS ---
EXAM: MR ABDOMEN WITHOUT AND WITH INTRAVENOUS CONTRAST CLINICAL INDICATION: New pancreatic cyst on CT; abd pain TECHNIQUE: Multiplanar and multisequence MR images of the abdomen without and with intravenous contrast. CONTRAST: 14 cc of Clariscan IV. COMPARISON: Pelvis 06/25/2024. FINDINGS: LOWER THORAX: Unremarkable. No pleural effusion. LIVER: Small cyst in the right lobe of small mass measuring 1.5 cm segment 6 of the right lobe of the liver the liver is high signal on T2 and fills in with contrast on the postcontrast images. GALLBLADDER AND BILE DUCTS: Unremarkable. No gallstones. No gallbladder distention or wall edema. No intra- or extrahepatic biliary ductal dilation. PANCREAS: Well-circumscribed cystic mass measuring 1.8 x 1.5 x 1.5 cm in the head of the pancreas corresponds with the cyst seen on the CT scan. No definite involvement of the pancreatic duct. Atrophic pancreas. SPLEEN: Unremarkable. Normal size without focal cystic or solid mass. ADRENALS: Unremarkable. No nodules. KIDNEYS AND URETERS: Simple right renal cyst. No follow-up of this simple cyst is necessary. Normal renal size and position. No hydronephrosis. INTRAPERITONEAL SPACE: Unremarkable. No ascites or other fluid collection. No free air. VASCULATURE: Unremarkable. Abdominal aorta is non-dilated. LYMPH NODES: No enlarged lymph nodes. MRI/MRI Abd WITH and W/O Contrast IMPRESSION: 1. Well-circumscribed cystic mass measuring 1.8 x 1.5 x 1.5 cm in the head of the pancreas corresponds with the cyst seen on the CT scan. No definite involvement of the pancreatic duct. Recommend a contrast-enhanced, pancreas-protocol abdominal CT or MR in 2 years. 2. Hemangioma measuring 1.5 cm in segment 6 of the right lobe of the liver. 3. Atrophic pancreas. Electronically Signed: Gonzalez Auguste MD at 4:51 EDT ,
== END | disposition home or self-care (01) ==
PROVIDERS: PCP Nurse Practitioner Primary Care; Referring Provider Nurse Practitioner Family; Visit Provider Nurse Practitioner Family
DX: R10.9 Unspecified abdominal pain (principal); K86.2 Cyst of pancreas
CPT/HCPCS: 74183; A9575; A4216

== ENCOUNTER → 2024-08-18 | Outpatient (CLI) | payer MEDICARE, SELFPAY ==
--- NOTE | 2024-08-18 11:19 | RAD_ITS ---
EXAM: XR ABDOMEN, 1 VIEW CLINICAL INDICATION: constipation TECHNIQUE: Frontal supine view of the abdomen/pelvis. COMPARISON: CT abdomen and pelvis, 06/25/2024. FINDINGS: INTRAPERITONEAL SPACE: No free air is identified. GASTROINTESTINAL TRACT: Large amount of colorectal stool and gas. ORGANS: Normal as visualized. No organomegaly. No abnormal calcifications. BONES/JOINTS: Degenerative changes and sigmoid scoliotic curvature of the spine. SOFT TISSUES: No acute pathology. RAD/Abdomen Single View IMPRESSION: Large amount of colorectal stool and gas. Electronically Signed: Xavier Dorado DO at 20:06 EDT ,
== END | disposition home or self-care (01) ==
LOC: RAD 11:17
PROVIDERS: PCP Nurse Practitioner Primary Care; Referring Provider Student in an Organized Health Care Education/Training Program; Visit Provider Student in an Organized Health Care Education/Training Program
DX: K59.00 Constipation, unspecified (principal)
CPT/HCPCS: 74018

== ENCOUNTER → 2025-06-14 | Outpatient (CLI) | payer MEDICARE, SELFPAY ==
--- NOTE | 2025-06-14 16:20 | RAD_ITS ---
PROCEDURE: CERV SPINE 2 OR 3 VIEWS 06/14/2025 REASON FOR EXAM: RADICULOPATHY, CERVICAL REGION TECHNIQUE: CERV SPINE 2 OR 3 VIEWS COMPARISON: Cervical spine radiographs 04/18/2021 FINDINGS: Anterolisthesis from C5 through C7, unchanged. Loss of intervertebral disc height with uncovertebral and facet arthropathy, worst at C3-4 and C4-5. Prevertebral soft tissues are normal in thickness. Odontoid view is unremarkable. RAD/Cerv Spine 2 or 3 Views IMPRESSION: Multilevel degenerative changes of the cervical spine, worst at C3-4 and C4-5, similar to 2020 radiographs. Reading Location: [facility]
== END | disposition home or self-care (01) ==
PROVIDERS: PCP Nurse Practitioner Primary Care; Referring Provider Anesthesiology Pain Medicine; Visit Provider Anesthesiology Pain Medicine
DX: M54.12 Radiculopathy, cervical region (principal)
CPT/HCPCS: 72040